=== PATIENT | female | born 1985 | race Caucasian/White ===

== ENCOUNTER → 2016-11-29 | Outpatient (CLI) | payer OTHER ==
--- OUTSIDE RECORDS SUMMARY | 2016-11-29 13:12 | XMS REPORT ---
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
--- NOTE | 2016-11-29 14:27 | Diagnostic Imaging Report ---
INDICATION: Pelvic pain, history of tubal ligation. COMPARISON: None. DISCUSSION: Transabdominal and transvaginal sonographic evaluation of the pelvis was performed. The uterus is normal in echotexture and size measuring 10.0 x 6.5 x 5.6 cm. Normal endometrial thickness measuring 0.6 cm. The right ovary is obscured by overlying bowel. The left ovary appears normal in echotexture and size with normal color Doppler blood flow. The left ovary measures 1.9 x 2.4 x 2.0 cm. No abnormal adnexal mass or fluid. IMPRESSION: 1. Nonvisualization of the right ovary. Otherwise unremarkable pelvic ultrasound. Dictated by: Dictated on workstation # [id number]
--- NOTE | 2016-11-29 18:59 | Diagnostic Imaging Report ---
Bilateral diagnostic mammogram. INDICATION: Palpable lumps in the right breast. Also, there is a lump in the medial aspect of the left breast. No prior studies are available for comparison. The current study was also evaluated with a Computer Aided Detection (CAD) system. FINDINGS: Extensive fibroglandular densities are seen in both breasts with no mass, architectural distortion or suspicious calcifications identified. There are markers placed at palpable areas, 2 in the right breast and 1 in the left breast with no correlating abnormality seen. IMPRESSION: No mammographic evidence of malignancy. Ultrasound evaluation pending. ACR BI-RADS Category 0: Incomplete. (Needs additional imaging evaluation). Result letter will be mailed to the patient. Note: At least 10% of breast cancer is not imaged by mammography. Dictated by: Dictated on workstation # [id number]
--- NOTE | 2016-11-29 19:07 | Diagnostic Imaging Report ---
Bilateral breast ultrasound. TECHNIQUE: All four quadrants and the retroareolar region were examined on this study. INDICATION: Bilateral breast pain and lumps. FINDINGS: The breasts demonstrate unremarkable parenchyma with no focal lesion in the retroareolar area or the four quadrants on both sides. IMPRESSION: Negative study. Clinical follow-up of patient's symptoms recommended. ACR BI-RADS Category 1: Negative. Result letter will be mailed to the patient. Note: At least 10% of breast cancer is not imaged by mammography. Dictated by: Dictated on workstation # [id number]
== END ==
LOC: RAD 13:08
PROVIDERS: ATTEND Nurse Practitioner Family
DX: R10.2 Pelvic and perineal pain (principal); N63 Unspecified lump in breast; N64.4 Mastodynia
CPT/HCPCS: 76830; 76856; 77066

== ENCOUNTER → 2018-01-19 | Outpatient (CLI) | payer OTHER ==
--- NOTE | 2018-01-19 14:20 | Diagnostic Imaging Report ---
INDICATION: Amenorrhea and cramping. COMPARISON: None. TECHNIQUE: Real-time grayscale and color Doppler ultrasound of the pelvis was performed transabdominally and endovaginally. Transabdominal imaging is significantly limited due to incomplete bladder distention. FINDINGS: The uterus measures 8.8 cm x 5.2 cm x 5.1 cm. The endometrium is somewhat poorly defined but appears to measure about 5-7 mm in thickness. Neither ovary is identified. No adnexal mass or free fluid is seen. IMPRESSION: Somewhat limited exam. Neither ovary is demonstrated. The endometrium is not well evaluated; however, it appears to be within normal limits at about 5-7 mm. Dictated by: Dictated on workstation # [id number]
== END ==
LOC: RAD 13:09
PROVIDERS: ATTEND Nurse Practitioner Family
DX: N91.2 Amenorrhea, unspecified (principal)
CPT/HCPCS: 76830; 76856